=== PATIENT | male | born 2000 | race Caucasian/White ===

== ENCOUNTER 2023-02-11 11:20 | Emergency (ER) | payer OTHER, SELFPAY ==
[2023-02-11 11:27] VITALS: BP 116/73; PULSE 89; RESP 18; TEMP 36.3; O2SAT 99; BMI 20.9
--- NOTE | 2023-02-11 11:31 | CRLHL7_ITS ---
For Patients: As a result of the Cures Act, medical imaging exams and procedure reports are released immediately into your electronic medical record. You may view this report before your referring provider. If you have questions, please contact your health care provider. INDICATION: Injury, crushed between two boards. TECHNIQUE: Left hand 3 views. COMPARISON: None. FINDINGS: No acute fracture or dislocation. Joint spaces are preserved. Soft tissues are unremarkable. IMPRESSION: No acute findings. Dictated by Treasure Dawson MD @ 02/11/2023 12:47:51 PM (Electronically Signed)
--- NOTE | 2023-02-11 13:22 | ED.GENADULT ---
HPI - General Adult General Chief complaint: Extremity Pain/Injury, Upper Stated complaint: L wrist injury Time Seen by Provider: 02/11/23 13:22 History of Present Illness HPI narrative: left hand smashed between 2 boards. 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 Apparently 2 x 4s fell on his hand. He describes any movement particularly around the thumb has shooting pain up his forearm. Has had fractures in various locations including hand before. Sounds like rather significant pain here. No other injuries are noted Related Data Home Medications Medication Instructions Recorded Confirmed No Known Home Medications 02/11/23 02/11/23 Allergies Allergy/AdvReac Type Severity Reaction Status Date / Time No Known Drug Allergies Allergy Verified 02/11/23 11:29 Review of Systems Status of ROS: Reports: 6 or more systems reviewed and unremarkable except as noted in History and below PFSH PFS Social History Smoking Status: Current every day smoker Do you use any of these nicotine containing products: E-Cigarettes How often do you have a drink containing alcohol: never AUDIT-C Alcohol total score: 0 Non-prescribed substance use: marijuana (any form) Exam Narrative: Exam Narrative: Pleasant. Slim. Well built. In work attire. NAD. Breathing easily. Clearly favoring his left hand/arm. Skin is warm and dry. Tattoos. Left upper extremity looks well perfused. There is a small scrape to the PIP knuckle dorsum of his left index finger. No active bleeding. Sensation intact. No pain to palpation over the D IP of the thumb. Increasingly tender to palpation over the proximal phalanx and exquisitely so at the head CP joint. I do not appreciate much swelling here. No palmar bruising. Salvador asks about scaphoid injury. He is tender over the anatomical snuffbox but I do not think that this is source of pain. Const: Vital Signs, click to edit/add: Vital Signs - 24 hr 02/11/23 11:27 Temperature 97.4 F L Pulse Rate [Right Pulse Oximeter] 89 Respiratory Rate 18 Blood Pressure [Ri ght Upper Arm] 116/73 Pulse Oximetry 99 Oxygen Delivery Me thod Room Air Documenting provider has reviewed patient's vital signs: yes Course Vital Signs Vital signs: Initial Vital Signs Temperature 97.4 F L 02/11/23 11:27 Temperature Source Temporal Artery Scan 02/11/23 11:27 Pulse Rate 89 02/11/23 11:27 Respiratory Rate 18 02/11/23 11:27 Blood Pressure 116/73 02/11/23 11:27 Blood Pressure Mean 87 02/11/23 11:27 Blood Pressure Position Sitting 02/11/23 11:27 Pulse Oximetry 99 02/11/23 11:27 Oxygen Delivery Method Room Air 02/11/23 11:27 Vital Signs Temperature 97.4 F L 02/11/23 11:27 Pulse Rate 89 02/11/23 11:27 Respiratory Rate 18 02/11/23 11:27 Blood Pressure 116/73 02/11/23 11:27 Pulse Oximetry 99 02/11/23 11:27 Oxygen Delivery Method Room Air 02/11/23 11:27 Temperature 97.4 F L 02/11/23 11:27 Pulse Rate 89 02/11/23 11:27 Respiratory Rate 18 02/11/23 11:27 Blood Pressure 116/73 02/11/23 11:27 Pulse Oximetry 99 02/11/23 11:27 Oxygen Delivery Method Room Air 02/11/23 11:27 Medical Decision Making MDM Narrative Medical decision making narrative: Necessary images/x-ray of the hand have been done by the time I am seeing Mr. Castorena. By my read I do not appreciate acute bony abnormality. Accessory ossicles are noted. As to proposed question, injury to scaphoid might seem inconsistent with mechanism as described. Is really too tender I think to assess for ligamentous injury. Absent resistance appears able to flex and extend the thumb though exacerbates pain. I think at this point contusion/periosteal contusion is leading diagnosis. I propose application of thumb spica splint and offered arm sling. I returned to fashion an Ortho Glass splint. Affixed with Francisco J wrap. This did help with discomfort. Radiology over-read noting no acute abnormality We discussed pain management. He anticipates use of [id number] treatments at this time. See patient discharge plan Discharge Plan Discharge Clinical Impression: Contusion Patient Disposition: Home, Self-Care Condition: Improved Additional Instructions: At this point I can say that you have a bruise to the base of your thumb. I do not see an indication that there was a fracture including no indication that a ligament or tendon has pulled away from the bone. Given the degree of discomfort you are having I think it is rather difficult to assess stability of the joint otherwise. Ice this area a few times daily over the next few days. You may of course remove the splint for this. Can take up to 800 mg of ibuprofen or up to 1000 mg of acetaminophen per dose. Alternative to the ibuprofen can take up to 500 mg of naproxen 2 times daily. Wear this thumb spica and arm sling for comfort over the next week. If still having significant pain in 7-10 days, would follow up for reassessment. Prescriptions: No Action No Known Home Medications Follow Up/Referrals: Provider,Not a Local [Primary Care Provider] - Stand Alone Forms: [employer] Info Instructions
== END 2023-02-11 14:05 | disposition home or self-care (01) ==
PROVIDERS: Emergency Provider Family Medicine
DX: S60.222A Contusion of left hand, initial encounter (principal)
CPT/HCPCS: 29130; 73130; 99283; 99284

== ENCOUNTER 2023-02-20 13:16 | Emergency (ER) | payer OTHER, SELFPAY ==
[2023-02-20 13:28] VITALS: BP 102/61; PULSE 92; RESP 16; TEMP 37.1; O2SAT 100; BMI 20.8
--- NOTE | 2023-02-20 13:45 | CRLHL7_ITS ---
For Patients: As a result of the Century Cures Act, medical imaging exams and procedure reports are released immediately into your electronic medical record. You may view this report before your referring provider. If you have questions, please contact your health care provider. Indication: .hurt wrist at base of thumb last week Technique: Three views left hand. Comparison: None. Findings/Impression: No acute displaced fracture or malalignment. No soft tissue swelling. Joint spaces are maintained. Bony mineralization is age appropriate. Dictated by Jacques John MD @ 02/20/2023 3:53:31 PM (Electronically Signed)
--- NOTE | 2023-02-20 15:18 | ED.UPPEXIN ---
HPI - Extremity Injury (Upper) General Date Seen: 02/20/23 Chief Complaint: Extremity Pain/Injury, Upper Stated Complaint: L arm injury Time Seen by Provider: 02/20/23 13:21 Source: patient Mode of arrival: ambulatory Limitations: no limitations History of Present Illness HPI narrative: Patient is a 22-year-old male with no pertinent medical history presented to emergency department for left wrist pain. He states about 10 days ago he has smashed between 2 x 4. He was evaluated that time and imaging showed no acute fractures. He was placed in a thumb spica splint due to the pain me in around the scaphoid region for a possible miss scaphoid fracture on imaging. He has been using the symptoms like a splint in taking off intermittently to ice it. He says the pain has not gotten better in that time frame so came in to get revaluated. Denies any other injuries. Denies numbness Related Data Home Medications Medication Instructions Recorded Confirmed No Known Home Medications 02/11/23 02/11/23 Allergies Allergy/AdvReac Type Severity Reaction Status Date / Time No Known Drug Allergies Allergy Verified 02/11/23 11:29 Review of Systems Narrative: Negative unless stated in HPI PFSH PFSH Social History Smoking Status: Current every day smoker Do you use any of these nicotine containing products: E-Cigarettes and Vaping Products Second hand tobacco smoke exposure: No How often do you have a drink containing alcohol: never How often do you have six or more drinks on one occasion: Never AUDIT-C Alcohol total score: 0 Non-prescribed substance use: marijuana (any form) Exam Narrative: Exam Narrative: Const: Well-nourished, Well-developed, in mild distress Eyes: PERRL, no conjunctival injection, and symmetrical lids HENT: Atraumatic external nose and ears. Moist mucous membranes. MSK:Extremities w/o deformity, Normal Active ROM, no tenderness at the anatomic snuffbox. There is tenderness noted at the base of the left thenar eminence Skin: Warm, Dry. No rashes or lesions. Neuro: Normal Muscle tone, No focal neurological deficits. Psych: Awake, Alert, & Oriented x3. Appropriate mood and affect. Const: Vital Signs, click to edit/add: Vital Signs - 24 hr 02/20/23 13:28 Temperature 98.8 F Pulse Rate [Pulse Oximeter] 92 Respiratory Rate 16 Blood Pressure [Ri ght Upper Arm] 102/61 Pulse Oximetry 100 Oxygen Delivery Me thod Room Air Course Vital Signs Vital signs: Initial Vital Signs Temperature 98.8 F 02/20/23 13:28 Temperature Source Temporal Artery Scan 02/20/23 13:28 Pulse Rate 92 02/20/23 13:28 Pulse Rhythm Regular 02/20/23 13:28 Pulse Strength 3+ Normal 02/20/23 13:28 Respiratory Rate 16 02/20/23 13:28 Blood Pressure 102/61 02/20/23 13:28 Blood Pressure Mean 74 02/20/23 13:28 Blood Pressure Position Sitting 02/20/23 13:28 Pulse Oximetry 100 02/20/23 13:28 Oxygen Delivery Method Room Air 02/20/23 13:28 Vital Signs Temperature 98.8 F 02/20/23 13:28 Pulse Rate 92 02/20/23 13:28 Respiratory Rate 16 02/20/23 13:28 Blood Pressure 102/61 02/20/23 13:28 Pulse Oximetry 100 02/20/23 13:28 Oxygen Delivery Method Room Air 02/20/23 13:28 Temperature 98.8 F 02/20/23 13:28 Pulse Rate 92 02/20/23 13:28 Respiratory Rate 16 02/20/23 13:28 Blood Pressure 102/61 02/20/23 13:28 Pulse Oximetry 100 02/20/23 13:28 Oxygen Delivery Method Room Air 02/20/23 13:28 MDM - Extremity Injury (Upper) MDM Narrative Medical decision making narrative: Patient's joint on year old male presenting for evaluation of his wrist. Pain is at the base of the thenar eminence. There is possibility that the initial scaphoid fracture could be missed as is commonly occurs and these type of injuries. This is also why likely why he was placed in the thumbs spica splint. We will reimage wrist at this time. Images returned showing no acute fractures. Unclear exactly what is causing her pain. Could be an underlying bone bruise. No fractures are apparent in since it has now been 10 days very unlikely to be a occult scaphoid fracture. He will be discharged home. Imaging Data Left wrist x-ray: Radiologist's impression: No acute displaced fracture or malalignment. No soft tissue swelling. Joint spaces are maintained. Bony mineralization is age appropriate. Dictated by Jacques John MD @ 02/20/2023 3:53:31 PM Discharge Plan Discharge Clinical Impression: Acute wrist pain Qualifiers: Laterality: left Qualified Code(s): M25.532 - Pain in left wrist Patient Disposition: Home, Self-Care Condition: Stable Instructions: Bone Bruise (ED) Additional Instructions: Only use the splint if he knew for comfort otherwise trying keep the thumb mobile. Return for new worsening symptoms. Symptoms may take up to 1-2 months to fully heal. Take Tylenol and ibuprofen for pain Prescriptions: No Action No Known Home Medications Follow Up/Referrals: Provider,Not a Local [Primary Care Provider] - Stand Alone Forms: [employer] Info Instructions
[2023-02-20 16:04] VITALS: BP 124/83; PULSE 76; RESP 16; O2SAT 99
== END 2023-02-20 16:06 | disposition home or self-care (01) ==
PROVIDERS: Emergency Provider Student in an Organized Health Care Education/Training Program
DX: M25.532 Pain in left wrist (principal); W23.0XXA Caught, crushed, jammed, or pinched between moving objects, initial encounter
CPT/HCPCS: 73110; 99282; 99283